=== PATIENT | female | born 1965 | race Caucasian/White ===

== ENCOUNTER → 2020-04-14 17:44 | Outpatient (CLI) | payer BC, SELFPAY ==
[2020-04-16 14:50] LABS: Covid-19 Nasal PCR Sendout Lex NOT DETECTED
== END ==
PROVIDERS: PCP Family Medicine; Visit Provider Family Medicine
DX: Z03.818 Encounter for observation for suspected exposure to other biological agents ruled out (principal)
CPT/HCPCS: U0004